=== PATIENT | female | born 1950 | race Hispanic/Latino ===

== ENCOUNTER → 2019-11-25 | Outpatient (CLI) | payer OTHER | END | disposition home or self-care (01) | LOC: OIH 13:51 | PROVIDERS: ATTEND Internal Medicine Cardiovascular Disease | DX: Z13.6 Encounter for screening for cardiovascular disorders (principal); I51.7 Cardiomegaly | CPT/HCPCS: 75571 ==

== ENCOUNTER → 2020-01-07 | Outpatient (CLI) | payer MEDICARE | END | disposition home or self-care (01) | LOC: SHCH 13:30 | PROVIDERS: ATTEND Internal Medicine Cardiovascular Disease | DX: I10 Essential (primary) hypertension (principal) | CPT/HCPCS: 93306 ==

== ENCOUNTER → 2020-01-10 | Outpatient (CLI) | payer MEDICARE | END | disposition home or self-care (01) | LOC: SHCH 13:33 | PROVIDERS: ATTEND Internal Medicine Cardiovascular Disease | DX: I65.23 Occlusion and stenosis of bilateral carotid arteries (principal); I10 Essential (primary) hypertension | CPT/HCPCS: 93880 ==

== ENCOUNTER → 2022-11-19 | Outpatient (CLI) | payer OTHER | END | disposition home or self-care (01) | LOC: SHCH 09:50 | PROVIDERS: ATTEND Internal Medicine Cardiovascular Disease | DX: I08.3 Combined rheumatic disorders of mitral, aortic and tricuspid valves (principal); I27.20 Pulmonary hypertension, unspecified; Q21.11 Secundum atrial septal defect; I11.9 Hypertensive heart disease without heart failure; I48.0 Paroxysmal atrial fibrillation; E78.5 Hyperlipidemia, unspecified | CPT/HCPCS: 93306 ==

== ENCOUNTER → 2023-05-14 | Outpatient (CLI) | payer OTHER | END | disposition home or self-care (01) | LOC: RAH 08:49 | PROVIDERS: ATTEND Internal Medicine Cardiovascular Disease | DX: Z13.6 Encounter for screening for cardiovascular disorders (principal); R93.1 Abnormal findings on diagnostic imaging of heart and coronary circulation | CPT/HCPCS: 75571 ==

== ENCOUNTER → 2023-07-10 | Outpatient (CLI) | payer OTHER ==
[2023-07-10 16:23] LABS: CREATININE 0.7 mg/dL (0.5-1.5); POTASSIUM 4.4 mmol/L (3.5-5.1)
== END | disposition home or self-care (01) ==
LOC: LAB 11:48
PROVIDERS: ATTEND Physician Assistant
DX: I10 Essential (primary) hypertension (principal)
CPT/HCPCS: 36415; 80048

== ENCOUNTER → 2025-06-15 | Outpatient (CLI) | payer OTHER ==
[2025-06-15] MEDS: REGADENOSON 0.4 MG/5 ML PF SYG IVP ONE (13:07)
--- NOTE | 2025-06-15 16:49 | HMCSR ---
APPROVED REPORT Height: 5 ft 1in Weight: 176 lbs TEST INDICATIONS CAD The imaging protocol used to acquire images was Rest Tc-99m/stress Tc-99m 1 day Consent: The procedure was explained and understood by the patient. Informerd consent was witnessed Aly Lees RN First, low dose rest was performed then high dose stress. RESTING DATA: The resting ekg shows: a-fib Rest SPECT myocardial perfusion imaging was performed in supine position minutes following the intra venous injection of 11 mCi of Tc-99 Sestamibi. Time of rest injection: 11:15: Date: 06/15/2025 PHARMACOLOGIC STRESS: Pharmacologic stress test was performed by injecting regadenoson 0.4 mg IV push followed by the intra venous injection of 30 mCi of Tc-99 Sestamibi. Time of stress injection: 13:26: Date: 06/15/2025 Heart Rate at time of stress injection: 116 bpm. Gated Stress SPECT was performed 60 minutes after stress injection. The images were gated to evaluate regional wall motion and calculate left ventricular ejection fracti on. STRESS DETAILS Reason for Termination: Infusion complete Stress Symptoms: Dyspnea Max HR Achieved: 148 bpm % of APMHR Achieved: 119 Max Blood Pressure: 144/99 mmHg Stress ECG: a-fib, aVR elevation and diffuse ST depression Study quality was good. Lung uptake was Normal. Artifact: No artifact IMPRESSION Abnormal pharmacologic nuclear stress test. Conclusion Mild reversible ischemia in the apical segment. TID abnormal 1.31, may represent left main or mutlivessel CAD. LVEF 71%.
== END | disposition home or self-care (01) ==
LOC: RAH 10:45
PROVIDERS: ATTEND Internal Medicine Cardiovascular Disease
DX: I25.9 Chronic ischemic heart disease, unspecified (principal); I48.91 Unspecified atrial fibrillation; I25.10 Atherosclerotic heart disease of native coronary artery without angina pectoris; R06.00 Dyspnea, unspecified
CPT/HCPCS: 78452; 93017; J2785; A9500 ×2

== ENCOUNTER 2025-07-11 06:42 | Day surgery (SDC) | payer OTHER ==
[2025-07-07 12:21] LABS: IMMATURE GRANULOCYTE ABSOLUTE 0.01 K/uL (0-1); NUCLEATED RED BLOOD CELLS 0.0 % (0.0-0.19); PLATELET COUNT (AUTO) 171 K/uL (130-400); RED BLOOD CELL COUNT(AUTO) 3.58 MIL/uL (4.00-5.50); RED CELL DISTRIBUTION WIDTH 14.6 % (11.0-15.5); WHITE BLOOD COUNT (AUTO) 5.5 K/uL (4.8-10.8)
[2025-07-07 12:24] LABS: APPEARANCE,URINE CLEAR (CLEAR); GLUCOSE, URINE (UA) NEGATIVE (NEGATIVE); LEUKOCYTE ESTERASE ,URINE NEGATIVE Leu/uL (NEGATIVE); NITRATE,URINE NEGATIVE (NEGATIVE); OCCULT BLOOD,URINE NEGATIVE (NEGATIVE)
[2025-07-07 12:30] VITALS: BP 137/55; PULSE 87; RESP 18; TEMP 97.4
[2025-07-07 12:31] LABS: ADD UA MICROSCOPIC NO
[2025-07-07 12:36] LABS: INR 1.13 (0.85-1.15)
[2025-07-07 12:38] LABS: CREATININE 0.9 mg/dL (0.5-1.0); GLOMERULAR FILTR. RATE CALC 67.0 mL/min (>90); GLUCOSE,RANDOM 93.0 mg/dL (70-105); SODIUM SERUM 137.0 mmol/L (136-145); UREA NITROGEN, BLOOD 17.0 mg/dL (7-18)
--- NOTE | 2025-07-07 13:01 | EKG ---
[facility] Test Date: 2025-07-07 Test Time: 12:05:29 Pat Name: ANNA VELAZQUEZ Department: [facility] Room: Gender: F Pickler Helper: [id number] : 1950 Requested By: Uriel CALHOUN Order Number: [id number] Reading MD: Foreign Maxwell Measurements Intervals Timblin Rate: 61 P: 0 AR: 0 QRS: 113 QRSD: 96 T: 1 QT: 429 QTc: 432 Interpretive Statements Atrial fibrillation Right axis deviation No previous ECG available for comparison Electronically Signed On 07-07-2025 20:29:42 CDT by Foreign Maxwell Please click the below link to view image of tracing.
--- NOTE | 2025-07-08 07:44 | HMCIMG ---
EXAM: CR Chest, 1 views. CLINICAL HISTORY: Cough. COMPARISON: None provided. FINDINGS: The lungs show no infiltrate or other acute findings. No pleural effusion or pneumothorax. Moderate cardiomegaly. Atherosclerotic aortic calcification. No acute osseous abnormality. IMPRESSION: Moderate cardiomegaly. Atherosclerotic aortic calcification. No pulmonary infiltrates or pleural effusions /[place]
[~2025-07-11] VITALS: Ht 152.4 cm; Wt 77.3 kg
[2025-07-11] VITALS (13 sets, daily range): BP systolic 110–148; BP diastolic 48–91; PULSE 68–86; RESP 13–17; TEMP 97.2–97.5
[~2025-07-11 06:42] MED LIST: APIX5TAB PO; BENA5TAB40 PO; BRIM5DRO21 OP; DORZ10DR10 OP; LORA10TA7 PO; METF-444 PO; METO100T14 PO; OXYB10TA30 PO
[2025-07-11] MEDS ORDERED: LIDOCAINE HCL 400MG/20ML VIAL ONE (10:35)
[2025-07-11] MEDS ORDERED: NITROGLYCERIN 50MG VIAL ONE (10:36)
[2025-07-11] MEDS ORDERED: HEParin-NS 1,000 UNIT/500 ML 500 ML IV ONE (10:36)
[2025-07-11] MEDS ORDERED: IOHEXOL 350 MG/ML 100ML INFUS..BTL IV ONE (10:36)
[2025-07-11] MEDS ORDERED: SODIUM BICARB 50MEQ 50ML VIAL 50 ML ONE (10:36)
[2025-07-11] MEDS ORDERED: MIDAZOLAM HCL 1 MG/ML 2ML VIAL ONE (10:58)
[2025-07-11] MEDS ORDERED: IOHEXOL-350 50ML VIAL IV ONE (10:59)
[2025-07-11] MEDS ORDERED: IOHEXOL-350 75 ML VIAL IV ONE (11:06)
[2025-07-11] MEDS ORDERED: GLUCAGON 1MG KIT 1 MG ML IM PRN (13:00)
[2025-07-11] MEDS ORDERED: DEXTROSE 50%-WATER 50 ML DISP.SYRIN IV PRN (13:00)
[2025-07-11] MEDS ORDERED: MIDAZOLAM HCL 1 MG/ML 2ML VIAL IVP ONE (13:30)
[2025-07-11] MEDS: MIDAZOLAM HCL 1 MG/ML 2ML VIAL IVP ONE ×2 (14:30→14:31)
[2025-07-11] MEDS: LIDOCAINE HCL 2% VISCOUS 15 ML UDCUP PO ONE (14:32)
--- NOTE | 2025-07-11 15:23 | HMCSR ---
APPROVED REPORT EXAM: Transesophageal echocardiogram with color flow Doppler. INDICATION ICD: Atherosclerotic heart disease of rincon coronary artery without angina pectoris I25.10 PROCEDURE After obtaining informed consent, patient underwent transesophageal echo in the Day Patient Room 15. 15 mL 2% Viscous Lidocaine was given as a topical anesthetic prior to the administration of the consc ious sedation. Type of Sedation: Conscious Sedation Sedation was administered by Virgil Perez RN. Transesophageal probe was inserted and advanced into esophagus without difficulty by Dr. Clark. JESSICA was performed and images were obtained, probe was removed without complications. Throughout the procedure, the blood pressure, pulse oximetry, cardiac rhythm, and rate were monitored . The patient tolerated the procedure without adverse effects. Recovery from conscious sedation was une ventful and vital signs were stable. Left Ventricle Left ventricular cavity size is normal. There is normal left ventricular wall thickness. LVEF is 45-5 0%. Right Ventricle The right ventricle is normal size. Right ventricular systolic function is moderately reduced. Atria The left atrium is severely dilated. No thrombus is visualized in the left atrial appendage. Atrial s eptal defect present with left to right shunt, measuring approximately 1.6cm. Mobile atrial septal an eurysm is present. The right atrium is severely dilated. Aortic Valve The aortic valve is mildly thickened but opens well. No aortic regurgitation is present. There is no aortic valvular stenosis. Mitral Valve The mitral valve is normal in structure and function. Mitral regurgitation is mild. There is no jt l valve stenosis. Tricuspid Valve The tricuspid valve is normal in structure. There is mild tricuspid valve regurgitation noted. Pulmonic Valve Pulmonic valve is not visualized. Great Vessels The aortic root is normal in size. Pericardium No pericardial effusion. Conclusion Atrial septal defect present with left to right shunt, measuring approximately 1.6cm. Mobile atrial septal aneurysm is present. The left atrium is severely dilated. No thrombus is visualized in the left atrial appendage.
--- NOTE | 2025-07-11 17:50 | NUR ---
VERBAL AND WRITTEN DISCHARGE INSTRUCTIONS GIVEN TO BOTH PT AND DAUGHTER. IV REMOVED SITE ASYMPTOMATIC. PT TAKEN OUT VIA WHEELCHAIR DAUGHTER DRIVING
--- NOTE | 2025-07-12 03:05 | CCATH ---
PROCEDURE NOTE PROCEDURES: * Right and left heart cath. * Left ventriculogram. * Selective diagnostic right and left coronary arteriogram. * Conscious sedation for 60 minutes. INDICATIONS: * Known history of coronary artery disease. * Status post remote angioplasty and stent procedure. * Atrial septal defect with left to right shunt. * Mitral insufficiency. * Dyspnea. COMPLICATIONS: None. TOTAL CONTRAST: 60 mL. DESCRIPTION OF PROCEDURE: The patient was taken to the cardiac catheterization lab after appropriate operative consents were signed. She was prepped and draped in the usual fashion. After conscious sedation was administered, the right common femoral arteries and common femoral vein region were infiltrated with 2% Xylocaine without epinephrine. A 6-Comoran x 45 sheath was advanced in a retrograde fashion in the right common femoral artery by modified Seldinger technique utilizing ultrasound guidance. Similarly, with ultrasound guidance, a 7-Comoran sheath was advanced in the right common femoral vein. At this point, a Bolckow-Blanca catheter was advanced under fluoroscopic guidance. It was positioned in the right atrium, superior vena cava, and inferior vena cava. Oxygen saturation measurements were obtained and pressures were recorded. The SVC saturation was 59%. The IVC saturation was measured at 72.4%. The right atrial saturation was 75.5%. The catheter was then advanced into the right ventricular cavity. Pressure was recorded. Right ventricular saturation was 76.3%. The catheter was then advanced utilizing wire into the pulmonary artery position. The pulmonary artery saturation was measured at 81.8%. The pulmonary arterial pressure was measured at 66. Cardiac output was then obtained. Pulmonary capillary wedge pressure was then measured with a very prominent V-wave. The 5-Comoran pigtail was then advanced and placed in the left ventricular cavity. Left ventricular end-diastolic pressure measurement was obtained. Simultaneous measurements of the left ventricle and pulmonary capillary wedge pressure tracings were obtained revealing no evidence of mitral stenosis. Ventriculography was performed in the BASILIO projection revealing moderate mitral insufficiency with hypokinesis of the anterior apical segment and inferior basal segment. There was no on pullback. At this point, the right coronary FR4 6-Comoran catheter was advanced and engaged in the ostium of the right coronary artery. This was imaged in multiplane. The right coronary artery was imaged in multiplane. This revealed a small to moderately sized right coronary artery that gave rise to an acute marginal and a PDA and PLVB. The right coronary artery was free of disease. The catheter was then withdrawn and an FL4 6-Comoran catheter was advanced and selectively engaged in the ostium of the left main. The left main was imaged in multiplane. This was a long vessel free of disease, which bifurcated into the LAD and circumflex. The circumflex artery is a moderately sized vessel that gives rise to a tiny obtuse marginal 1 and ongoing circ with a larger branching of obtuse marginal 2. The circ system was free of disease. The LAD was a moderately sized vessel that had a patent stent in its proximal portion. The LAD gave rise to several diagonals and septal perforators. No additional disease was identified. At this point, the procedure was completed. The patient's management included Perclose for right femoral artery access with good hemostasis. Vascade was utilized for the venous sheath and obtained good hemostasis. At this point, the procedure was completed, the patient tolerated and left the cardiac laboratory cureman in stable condition. FINAL IMPRESSION: * Patent LAD stent with no other significant stenotic lesions. * Moderate mitral insufficiency. * No aortic stenosis. * EF of 45% with mild anterior apical hypokinesis and inferior basal hypokinesis. * Moderate MR. * Moderate pulmonary hypertension. * Atrial septal defect with left to right shunt and shunt calculation is 2.3:1. PLAN: Proceed with a JESSICA and additional recommendations to follow. TID: [id number] RECEIPT: [id number]
== END 2025-07-11 18:10 | disposition home or self-care (01) ==
LOC: DAH 06:42
PROVIDERS: ATTEND Internal Medicine Cardiovascular Disease
DX: I25.10 Atherosclerotic heart disease of native coronary artery without angina pectoris (principal); I08.1 Rheumatic disorders of both mitral and tricuspid valves; Q21.10 Atrial septal defect, unspecified; Z79.899 Other long term (current) drug therapy; I10 Essential (primary) hypertension; E78.5 Hyperlipidemia, unspecified; I48.20 Chronic atrial fibrillation, unspecified; I50.32 Chronic diastolic (congestive) heart failure; I87.2 Venous insufficiency (chronic) (peripheral); E78.2 Mixed hyperlipidemia; I27.20 Pulmonary hypertension, unspecified; Z90.710 Acquired absence of both cervix and uterus; Z98.890 Other specified postprocedural states; Z79.01 Long term (current) use of anticoagulants
CPT/HCPCS: 80048; 83880; 85025; 85610; 85730; 81003; 36415; 71045; 93005; 93460; 99156; 99157 ×3; 82948; 93325; 93312; C1894 ×3; C1760 ×2; C1893; Q9965; J3010 ×2; J3490 ×3; J2250 ×3; J1644; Q9967 ×2; A4615; A4215; A4657; A4335; A4222; A4221; A4663; A4216; A4606; A4223 ×3; A4554; 99152; G0500